=== PATIENT | male | born 1980 | race African-American/Black ===

== ENCOUNTER 2019-05-05 15:14 | Emergency (ER) | payer SELFPAY ==
[~2019-05-05] VITALS: Ht 182.9 cm; Wt 97.5 kg
[2019-05-05] MEDS ORDERED: MORPHINE SULFATE 4 MG/ML CPJ (NOT FOR IM USE) IV STA (15:48)
[2019-05-05] MEDS ORDERED: SODIUM CHLORIDE 0.9% 1,000 ML IV ONE (15:48)
[2019-05-05] MEDS ORDERED: ONDANSETRON HCL 4MG/2ML INJ IV STA (15:48)
[2019-05-05] MEDS ORDERED: ASPIRIN 81MG TABLET PO ONE (16:00)
[2019-05-05 16:58] LABS: BASOPHILS % 0.8 % (0.0-2.0); EOSINOPHILS % 2.7 % (0.0-5.0); HEMATOCRIT. 44.5 % (42.0-52.0); HEMOGLOBIN. 15.3 g/dL (14.0-18.0); LYMPHOCYTES % 32.5 % (20.0-50.0); MEAN CORPUSCULAR HEMOGLOBIN 30.1 pg (28.0-32.0); MEAN CORPUSCULAR VOLUME 87.3 fL (80.0-94.0); MEAN PLATELET VOLUME 8.5 fl (7.4-10.4); MONOCYTES % 9.4 % (2.0-8.0); NEUTROPHILS % 54.6 % (40.0-76.0); PLATELET 222 x1000/uL (130-400)
[2019-05-05 17:02] LABS: CHLORIDE 105 mEq/L (98-107)
[2019-05-05 17:06] LABS: ETHANOL BLOOD < 10 mg/dL
[2019-05-05] MEDS ORDERED: KETOROLAC 30MG/ML VIAL IV ONE (18:30)
[2019-05-05 18:43] LABS: *AMPHETAMINES SCREEN URINE NEGATIVE (NEGATIVE); *BARBITURATES SCREEN URINE NEGATIVE (NEGATIVE); *BENZODIAZEPINES SCREEN URINE NEGATIVE (NEGATIVE); *COCAINE SCREEN URINE NEGATIVE (NEGATIVE); CANNABINOID URINE SCREEN PRESUMTIVE POSITIVE (NEGATIVE); METHADONE URINE SCREEN NEGATIVE (NEGATIVE); OPIATES URINE SCREEN NEGATIVE (NEGATIVE); PHENCYCLIDINE URINE SCREEN NEGATIVE (NEGATIVE)
[2019-05-05 20:44] VITALS: BP 104/62
== END 2019-05-05 20:46 | disposition home or self-care (01) ==
LOC: ER 15:14
DX: R07.89 Other chest pain (principal); I10 Essential (primary) hypertension
CPT/HCPCS: 36415; 71045; 80053; 80305; 80320; 83880; 84484; 85025; 93005; 99285; J7030; Z7610; J1885; J2270; J2405; G0480